=== PATIENT | female | born 1975 ===

== ENCOUNTER → 2025-05-15 | Day surgery (SDC) | payer OTHER ==
[2025-05-08 13:54] VITALS: BP 140/88
[~2025-05-15] VITALS: Ht 149.9 cm; Wt 81.6 kg
[~2025-05-15] MED LIST: ATIVAN0.5 M1 PO; CEFAZOLIN SODIUM 1,000 MG VIAL IV ONE; CLARITIN10 MG PO; FAMOTIDINE40 MG PO; OMEPRAZOLE-BIC1 EAC1 PO; SUGAMMADEX SODIUM 200 MG/2 ML VIAL IV ONE
== END | disposition home or self-care (01) ==
LOC: ADM 05-08 12:15 → CIR.AMB 06:00
PROVIDERS: ATTEND Surgery
DX: K81.1 Chronic cholecystitis (principal)